=== PATIENT | female | born 1990 | race Caucasian/White ===

== ENCOUNTER 2020-07-25 18:43 | Emergency (ER) | payer OTHER, SELFPAY ==
--- NOTE | ~2020-07-25 | XR_ITS ---
EXAMINATION: XR HAND, RIGHT CLINICAL INFORMATION: Thumb injury. COMPARISON: None TECHNIQUE: PA, lateral, and oblique views of the right hand. FINDINGS: There is acute, minimally displaced fracture at the dorsal base of the distal phalanx of the first digit with extension into the interphalangeal joint space. The remainder of the joints are intact. There is mild soft tissue swelling. XR/XR hand RT min 3V IMPRESSION: Acute, minimally displaced intra-articular fracture at the dorsal base of the distal phalanx of the first digit.
[2020-07-25 19:55] VITALS: BP 128/88; PULSE 97; RESP 16; TEMP 36.8; O2SAT 96; BMI 22.4
--- NOTE | 2020-07-25 20:01 | ED.EXTPRO ---
HPI - Extremity Problem General Chief complaint: Extremity Injury, Upper Stated complaint: thumb pain Source: patient Mode of arrival: ambulatory Limitations: no limitations History of Present Illness HPI Narrative: 29-year-old female with no significant past medical history presents with right thumb pain and bruising. Patient stated that she was working out, using a punching bag, discharge her hand slipped, missed a punching bag and her thumb directly jammed in to the punching bag. She is having a difficult time bending the D IP joint on the right thumb and has bruising noted to the tip. She does not describe any other symptoms, has full range of motion to the PIP joint, no pain to any other digits or wrist. MD Complaint: extremity pain and extremity swelling Onset (ago): hour(s) (Within the hour of arrival) Pain Consistency: constant Location: right (thumb) Severity scale (1-10): 8 Quality: aching and constant Radiation: distal Relieving factors: nothing Exacerbating factors: range of motion and palpation Associated symptoms: denies other symptoms Related Data Previous Rx's Medication Instructions Recorded oxycodone 5 mg PO Q6H PRN #10 cap 07/25/20 Allergies Allergy/AdvReac Type Severity Reaction Status Date / Time No Known Allergies Allergy Verified 07/25/20 19:59 Review of Systems Review of Systems: Constitutional: No Fever, No Chills ENT/Mouth: No Ear Pain, No Hoarseness, No sore throat Eyes: No Eye Pain, No Swelling, No Redness, No Foreign Body Cardiovascular: No Chest Pain, No SOB Respiratory: No Cough, No Dyspnea Gastrointestinal: No Nausea, No Vomiting, No Diarrhea, No abdominal Pain Genitourinary: No Dysuria, No Hematuria Musculoskeletal: positive right thumb pain, No Myalgias, No Joint Swelling Skin: No Skin lacerations, No rash Neuro: No Weakness, No Numbness, No Paresthesias, No Loss of Consciousness, No Dizziness, No Headache Psych: No Anxiety/Panic, No Depression Heme/Lymph: no easy bruising, no Lymphadenopathy Endocrine: No Polyuria, No Polydipsia Yes all other systems are reviewed and are negative [facility] Past Medical History Attestation statement: The following information was validated with the patient. Source: old records reviewed Medical History No known health problems Social History Social History Advance Directives: No Physical Exam Vital Signs: Vital Signs: Last Vital Signs Temp 98.2 F 07/25/20 19:55 Pulse 97 07/25/20 19:55 Resp 16 07/25/20 19:55 BP 128/88 07/25/20 19:55 Pulse Ox 96 07/25/20 19:55 Body Mass Index 22.4 Appearance: Alert. Oriented X3. No acute distress. Eyes: Pupils equal, round and reactive to light. ENT: Pharynx normal. Neck: Normal inspection. Neck supple. CVS: Normal heart rate and rhythm. Pulses normal. Respiratory: No respiratory distress. Breath sounds normal. Abdomen: Soft and nontender. Skin: Skin warm and dry. Normal skin color. Normal skin turgor. Extremities: D IP joint of right thumb bruised, decreased range of motion to that joint, full range of motion to the PIP, no snuffbox tenderness, strength 5/5 to all digits. Brisk capillary refill. Neuro: No motor deficit. No sensory deficit. No focal neural deficits. Course Course Course Narrative: 29-year-old female presents with a thumb injury. Plan of care is for x-ray. X-ray positive for fracture will apply a splint, les-tape, and refer to Ortho as needed. Patient verbalized understanding of and agrees to plan of care discharge home. MDM - Extremity (Nontraumatic) MDM Narrative Medical decision making narrative: Fracture, sprain Medical Records Attestation: I reviewed the patient's medical records. Imaging Data Hand x-ray: Attestation: I personally reviewed and interpreted this imaging study as follows: Radiologist's impression: EXAMINATION: XR HAND, RIGHT CLINICAL INFORMATION: Thumb injury. COMPARISON: None TECHNIQUE: PA, lateral, and oblique views of the right hand. FINDINGS: There is acute, minimally displaced fracture at the dorsal base of the distal phalanx of the first digit with extension into the interphalangeal joint space. The remainder of the joints are intact. There is mild soft tissue swelling. XR/XR hand RT min 3V IMPRESSION: Acute, minimally displaced intra-articular fracture at the dorsal base of the distal phalanx of the first digit. Discharge Plan Discharge Clinical Impression: Fracture of thumb Patient Disposition: Home, Self-Care Instructions: Thumb Fracture (ED) Additional Instructions: You were evaluated for thumb injury. X-rays indicated fracture. Please follow-up with primary care physician and or orthopedics as needed. Prescribed oxycodone for pain management. This medication is a narcotic and has high risk for addiction and abuse. This medication may increase risk for falls, cause drowsiness, and constipation. Drink plenty of fluids, use MiraLax and/or Colace as needed to help soften stools. Thank you for choosing this emergency department for evaluation. Please follow-up with primary care physician as needed. Return to the emergency department for any new, concerning, or worsening symptoms. Prescriptions: New oxycodone 5 mg capsule 5 mg PO Q6H PRN (Reason: pain) Qty: 10 RF: 0 Referrals: Chelle Gonzalez MD [Physician] - 2 days (Thumb fracture) Stand Alone Forms: Work/School Release Interventions: ED Discharge Assessment Last Done: 07/25/20 21:20 Discharge Date/Time: 07/25/20 21:20
[2020-07-25] MEDS: Ibuprofen 600 MG TABLET PO (20:39)
== END 2020-07-25 21:20 | disposition home or self-care (01) ==
PROVIDERS: Emergency Provider Emergency Medicine
DX: S62.521A Displaced fracture of distal phalanx of right thumb, initial encounter for closed fracture (principal); W21.89XA Striking against or struck by other sports equipment, initial encounter; Y93.71 Activity, boxing; Y92.019 Unspecified place in single-family (private) house as the place of occurrence of the external cause; Y99.9 Unspecified external cause status
CPT/HCPCS: 29130; 73130; 99283

== ENCOUNTER → 2020-08-02 14:58 | Outpatient (BNVA) | payer OTHER, SELFPAY | PROVIDERS: Visit Provider Orthopaedic Surgery | DX: S62.521A Displaced fracture of distal phalanx of right thumb, initial encounter for closed fracture (principal) | CPT/HCPCS: 99202 ==

== ENCOUNTER 2020-08-04 10:24 | Day surgery (SDC) | payer OTHER, SELFPAY ==
[2020-08-03 09:08] VITALS: BMI 22.4
[2020-08-04] VITALS (8 sets, daily range): BP systolic 109–143; BP diastolic 76–92; PULSE 64–89; RESP 16–20; TEMP 36.6–37.1; O2SAT 99–100; BMI 22.4
--- NOTE | ~2020-08-04 | FL_ITS ---
EXAMINATION: XR FLUOROSCOPY WITH IMAGES CLINICAL INFORMATION: closed reduction vs ORIF right thumb COMPARISON: None. TECHNIQUE: Fluoroscopy performed by Dr. Gonzalez. Fluoroscopy time: 12.3 seconds DAP: 5570.1 Gycm2 Images: 2 FL/FL guidance in OR FINDINGS/IMPRESSION: A single longitudinal retrograde K wire extends through the comminuted intra-articular distal phalangeal shaft fracture into the head of the thumb proximal phalanx. Alignment is improved as compared to prior.
[2020-08-04 10:42] LABS: UPreg QC Valid YES; Urine Pregnancy NEGATIVE (NEGATIVE)
[2020-08-04] MEDS: Lactated Ringers 1,000 ML 20 ML IVCONT (10:44)
--- NOTE | 2020-08-04 12:57 | P.OP_ITS ---
Operative Note Operative Note Date of Service: 08/04/20 Narrative: Operative Note Narrative: Preop diagnosis: 1. Right thumb intra-articular comminuted distal phalanx fracture Postop diagnosis: Same Procedure: 1. Right thumb closed reduction percutaneous pinning of the distal phalanx fracture Surgeon: Chelle Gonzalez MD Anesthesia: General Findings: finger fracture Implants: 0.045 K-wires times 1 Tourniquet time: None EBL: Minimal Specimen: None Drains: None Complications: None Disposition: Brought to the recovery room in stable condition Plan: Follow-up in 10-14 days for a wound check, postop radiographs and for placement in a short-arm thumb spica cast or splint Anticipate K-wire removal in 4 weeks based on interval bony healing Educate the patient that full fracture healing anticipated in approximately 8-12 weeks. Indications: The patient is 29 years old with a right thumb intra-articular displaced distal phalanx fracture . The risks and benefits of operative treatment, including but not limited to risk of damage to blood vessels, nerves, tendons, infection, recurrence, delayed or nonunion of fracture, persistent pain or numbness, incomplete resolution of preoperative symptoms, or need for further surgery were discussed with the patient and they wished to proceed with surgery. Procedure: Once consent was obtained patient was brought back to the operating suite and placed in the operating table in a supine position. . Perioperative antibiotics and general anesthesia was administered by the anesthesia team. A tourniquet was applied to the proximal aspect of the right upper extremity and the limb was prepped and draped in a standard surgical fashion. Tourniquet was not inflated during the case. The FluoroScan was used during the case to assist with our fracture reduction and placement of all implants. A closed reduction was performed on the patient's right thumb distal phalanx fracture. I placed a single 0.045 K- wire retrograde through the tip of the distal phalanx. I then advanced this acr oss the fracture site and then across the IP joint into the proximal phalanx. Fracture alignment was assessed for both angular and rotational malalignment. Once satisfied with our fracture reduction and implant placement, the K-wires were bent and cut short and pin caps applied. Final fluoroscopic images were then obtained. The wounds were copiously irrigated with normal saline. [An ulnar nerve block was then performed by infiltrating about the ulnar nerve at the wrist with some 1% lidocaine with epinephrine for postop pain control.] A Sterile dressing and short volar splint extending to the forearm was applied. The patient appears to have tolerated the procedure well and with no complications. All digits were well vascularized at the conclusion of the case.
--- NOTE | 2020-08-04 12:57 | MHC.SHP ---
Pre-Procedural Eval Section B Chief Complaint: fx phalanx of thumb Allergies: Allergies Allergy/AdvReac Type Severity Reaction Status Date / Time No Known Allergies Allergy Verified 08/02/20 15:24 Plan I have reviewed the history and physical and performed a pertinent physical examination on my patient. No changes have occurred unless specified.
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
[2020-08-04] MEDS: Acetaminophen 325 MG TABLET 650 MG PO (13:59)
[2020-08-04] MEDS: HYDROmorphone HCl 0.5 MG/0.5 ML SYRINGE 0.25 MG IVPUSH ×2 (13:59→14:08)
[2020-08-04] MEDS: oxyCODONE HCl Immed Release 5 MG TABLET PO (13:59)
[2020-08-04] MEDS: Ketorolac Tromethamine 15 MG/ML VIAL IVPUSH (14:11)
== END 2020-08-04 15:09 | disposition home or self-care (01) ==
PROVIDERS: Visit Provider Orthopaedic Surgery
PROC: (CPT 26756; principal; 2020-08-04 12:10)
DX: S62.521A Displaced fracture of distal phalanx of right thumb, initial encounter for closed fracture (principal); W21.89XA Striking against or struck by other sports equipment, initial encounter; Y93.89 Activity, other specified; Y92.9 Unspecified place or not applicable; Y99.8 Other external cause status
CPT/HCPCS: 26756; 81025; J0690; J1100; J1170; J1885; J2250; J2405; J3010

== ENCOUNTER 2020-08-15 09:10 | Outpatient (REF) | payer OTHER, SELFPAY ==
--- NOTE | ~2020-08-15 | XR_ITS ---
EXAMINATION: XR HAND, RIGHT CLINICAL INFORMATION: Fracture base first distal phalanx. Post reduction. COMPARISON: Radiographs right hand 07/25/2020 TECHNIQUE: Right hand is imaged in 4 views. FINDINGS: The intra-articular fracture base first distal phalanx is reduced with longitudinal metallic orthopedic pin which crosses the interphalangeal joint. Alignment is improved from prior exam. There is no dislocation or destructive process. Hardware is intact. Remainder of bony structures are unremarkable. XR/XR hand RT min 3V IMPRESSION: Status post reduction intra-articular fracture base first distal phalanx.
== END 2020-08-15 09:11 | disposition home or self-care (01) ==
LOC: HO.HOSX 09:10
PROVIDERS: Visit Provider Orthopaedic Surgery
DX: S62.521D Displaced fracture of distal phalanx of right thumb, subsequent encounter for fracture with routine healing (principal)
CPT/HCPCS: 29075; 73130; 99212

== ENCOUNTER 2020-08-29 09:19 | Outpatient (REF) | payer OTHER, SELFPAY ==
--- NOTE | ~2020-08-29 | XR_ITS ---
EXAMINATION: XR HAND, RIGHT CLINICAL INFORMATION: Pain. Fracture follow up. COMPARISON: Most recent right hand radiographs dated 08/15/2020. TECHNIQUE: PA, lateral, and oblique views of the right hand. FINDINGS: Redemonstration of an orthopedic wire through a comminuted 1st distal phalangeal fracture. No significant change in anatomic alignment. No hardware fracture or perihardware lucency to suggest loosening or infection. Mild new bone/callus formation across the fracture. XR/XR hand RT min 3V IMPRESSION: Distal 1st phalangeal fracture in unchanged anatomic alignment with mild new bone/callus formation. Associated orthopedic wire without evidence of hardware complication.
== END 2020-08-29 09:20 | disposition home or self-care (01) ==
LOC: HO.HOSX 09:19
PROVIDERS: Visit Provider Orthopaedic Surgery
DX: S62.521D Displaced fracture of distal phalanx of right thumb, subsequent encounter for fracture with routine healing (principal)
CPT/HCPCS: 73130; 99212

== ENCOUNTER 2024-02-27 17:05 | Emergency (ER) | payer OTHER, SELFPAY ==
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
[2024-02-27 17:25] VITALS: BP 123/69; PULSE 89; RESP 20; TEMP 36.9; O2SAT 100; BMI 20.8
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
[2024-02-27] MEDS: HYDROcodone Bit/Acetam 5/325 TABLET 1 TAB PO (19:13)
[2024-02-27] MEDS: Ibuprofen 600 MG TABLET PO (19:14)
[2024-02-27 19:40] VITALS: BP 123/69; PULSE 89; RESP 20; TEMP 36.9; O2SAT 100
== END 2024-02-27 19:40 | disposition home or self-care (01) ==
PROVIDERS: Emergency Provider Emergency Medicine
DX: S62.304A Unspecified fracture of fourth metacarpal bone, right hand, initial encounter for closed fracture (principal); S62.306A Unspecified fracture of fifth metacarpal bone, right hand, initial encounter for closed fracture; M25.531 Pain in right wrist; X58.XXXA Exposure to other specified factors, initial encounter; Y93.89 Activity, other specified; Y92.89 Other specified places as the place of occurrence of the external cause; Y99.8 Other external cause status
CPT/HCPCS: 29125; 73110; 73130; 99283; 99284

== ENCOUNTER 2024-03-03 08:17 | Outpatient (REF) | payer OTHER, SELFPAY | END 2024-03-03 08:18 | disposition home or self-care (01) | LOC: HO.HOSX 08:17 | DX: M79.641 Pain in right hand (principal); S62.314A Displaced fracture of base of fourth metacarpal bone, right hand, initial encounter for closed fracture; S62.316A Displaced fracture of base of fifth metacarpal bone, right hand, initial encounter for closed fracture; M21.941 Unspecified acquired deformity of hand, right hand | CPT/HCPCS: 26600; 73130; 99202 ==

== ENCOUNTER 2024-03-03 08:17 | Outpatient (AMB) | payer OTHER, SELFPAY ==
--- NOTE | 2024-03-03 08:21 | A.OFFVIS_ITS ---
Vital Signs 03/03/24 08:23 Height 5 ft 5 in Weight 128 lb BMI 21.3 Handedness Left Intake Visit Reasons: ED f/u FC - rt hand Metacarpal Fx Intake Note: Dianne is a 33 year old left hand dominant female who presents today as a new patient for an emergency department follow up for her right hand metacarpal fracture, DOI: 02/27/2024. Patient reports she punched the side of a house. She reports immediately after this injury she had swelling, pain and noticed her hand was deformed immediately. She expresses burning pain depending on how much she uses her hand. She was prescribed ibuprofen and hydrocodone with acetaminophen and found mild relief. Reports the top of her right thumb has been numb since the injury. Allergies No Known Allergies Allergy (Verified 03/03/24 08:23) HPI HPI ED f/u FC - rt hand Metacarpal Fx: Details: Patient is a 33-year-old female who presents for ED follow-up of right 4th and 5th metacarpal base fractures, date of injury 02/27/2024. Patient states that on that date, she punched a wall, and immediately began to experience pain and a significant deformity in the right hand, particularly at the level of the 4th and 5th metacarpal bases. Patient was evaluated in the ED, where x-rays were taken revealing displaced and apex dorsal fractures of the 4th and 5th metacarpal bases. Of note, the patient does state that she did have to have surgery in the same area of her fractures approximately 10-12 years ago, although she is unable to recall what was broken or what was done. The patient does report that she does have some diminished sensation in the small finger of the right hand, but states that she feels this is likely due to swelling. No other acute complaints or concerns at this time. 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 Neuro: Normal sensation of the tips of all digits of the right hand at this time Vascular: Cap refill brisk Pain: Patient reports significant tenderness to palpation at the level of the 4th and 5th metacarpal bases Patient also reports pain with attempted range of motion in this area ROM: Patient is able to get close to making a closed fist, but reports significant pain in the area of the fracture when doing so Skin: No lacerations or abrasions. General: There is a significant deformity noted at the level of the 4th and 5th m etacarpal bases of the right hand at the level of the fracture No ecchymosis, erythema, or evidence of infection. Psych: Appears grossly normal Affect normal Attitude cooperative Office Procedures Casting/Splints 09981-Mnrhvzv Splint Application Procedure code (CPT) selection complete Results Reviewed Results Reviewed: X-rays obtained in the office today and independently reviewed by me, Ashish Celeste PA-C, demonstrate angulated, apex volar fractures of the 4th and 5th metacarpal bases of the right hand. Assessment & Plan Assessment & Plan (1) Displaced fracture of base of fourth metacarpal bone, right hand, initial encounter for closed fracture: Code(s): S62.314A - Displaced fracture of base of fourth metacarpal bone, right hand, initial encounter for closed fracture Category: Medical (2) Displaced fracture of base of fifth metacarpal bone, right hand, initial encounter for closed fracture: Code(s): S62.316A - Displaced fracture of base of fifth metacarpal bone, right hand, initial encounter for closed fracture Category: Medical Plan 1. Right 4th metacarpal base fracture 2. Right 5th metacarpal base fracture Date of injury 02/27/2024 I educated the patient about the condition. I discussed both operative and nonoperative treatment options. The patient would like to proceed with surgery. The risks and benefits of operative treatment were discussed with the patient and the patient wishes to proceed with surgery. These risks include, but are not limited to, risk of damage to blood vessels, nerves, tendons, infection, recurrence, incomplete relief of preoperative symptoms, persistent pain, possible need for further surgery, and the risks associated with regional blocks and/or anesthesia. Plan is to take the patient to the operating room on 03/09/24 for the following procedures: 1. Right 4th metacarpal CRPP versus ORIF 2. Right 5th metacarpal CRPP versus ORIF All of the preoperative paperwork including the consent was discussed today. All of the patient's questions were answered in the clinic today. The patient understands that they will be in contact with our lard renderer to discuss scheduling their procedure. Patient denies diabetes, blood thinners, asthma, heart issues, lung issues, kidney issues Patient does report that she uses a vape pen, and is educated on the potential effects of smoking on bony healing Patient was placed in an ulnar gutter splint in the office today is educated on proper splint care and precautions Orders: Orders XR hand RT min 3V Today M79.641 - Pain in right hand Coding Level of Care Code New Pt Level 4 (55934) Diagnoses Displaced fracture of base of fourth metacarpal bone, right hand, initial encounter for closed fracture S62.314A Displaced fracture of base of fifth metacarpal bone, right hand, initial encou nter for closed fracture S62.316A CPT Codes Splint - CPT: 31860-Isijjhv Splint Application ([id number])
[2024-03-03 08:23] VITALS: BMI 21.3
== END 2024-03-03 09:40 | disposition home or self-care (01) ==
DX: S62.314A Displaced fracture of base of fourth metacarpal bone, right hand, initial encounter for closed fracture (principal); S62.316A Displaced fracture of base of fifth metacarpal bone, right hand, initial encounter for closed fracture
CPT/HCPCS: 26600; 99204

== ENCOUNTER 2024-03-09 07:31 | Day surgery (SDC) | payer OTHER, SELFPAY ==
--- NOTE | 2024-03-05 13:45 | HO.ANESPROP2 ---
Documented by User: Genoveva Saeed NP 03/05/24 13:45 HPI - Anesthesia Eval Consult details Narrative: 33yo F for Right Fourth and Fifth Metacarpal CRPP VS ORIF [facility]LY [facility] Active Problems Active Problems: All Active Problems Displaced fracture of base of fifth metacarpal bone, right hand, initial encounter for closed fracture (Acute) Displaced fracture of base of fourth metacarpal bone, right hand, initial encounter for closed fracture (Acute) Fracture of distal phalanx of right thumb (Acute) Past Medical History Medical History No known health problems Surgical History Surgical History H/O tubal ligation Hx of thumb surgery Hx of hand surgery Social History Social History Alcohol intake: current Alcohol intake frequency: does not drink Patient Tobacco Use Status: Never used Tobacco Tobacco use type: Smokeless Tobacco e-Cigarette/Vaping Use: Currently Using Substance Use Type: Marijuana Have you been hit, kicked, punched, or otherwise hurt by someone within the past year? 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 Allergies Allergy/AdvReac Type Severity Reaction Status Date / Time No Known Allergies Allergy Verified 03/03/24 08:23 Home Medications ?Medication ?Instructions ?Recorded ?Confirmed ?Last Taken ?Type No Known Home Meds 03/09/24 03/09/24 Unknown History Assessment and Plan Assessment Anesthesia Assessment: Chart Reviewed Documented by User: Georgia Jose MD 03/09/24 09:06 [facility] Past Medical History Medical History No known health problems Family History Family history of problems with anesthesia: No Surgical History Surgical History H/O tubal ligation Hx of thumb surgery Hx of hand surgery History of Problems with Anesthesia: No Social History Social History Alcohol intake: current Alcohol intake frequency: does not drink Patient Tobacco Use Status: Never used Tobacco Tobacco use type: Smokeless Tobacco e-Cigarette/Vaping Use: Currently Using Substance Use Type: Marijuana Have you been hit, kicked, punched, or otherwise hurt by someone within the past year? 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 Allergies Allergy/AdvReac Type Severity Reaction Status Date / Time No Known Allergies Allergy Verified 03/03/24 08:23 Home Medications ?Medication ?Instructions ?Recorded ?Confirmed ?Last Taken ?Type No Known Home Meds 03/09/24 03/09/24 Unknown History Exam Airway Mallampati Class: II TM Dist: >3cm Neck ROM: Full Heart: rrr Lungs: cta Assessment and Plan Assessment Anesthesia Assessment: Anesthesia Plan Discussed Final Anesthetic Review Family History of Problems with Anesthesia: No History of Problems with Anesthesia: No NPO: Yes ASA Class: II (marihuana and smokeless tobacco user) Final Preanesthetic Review: No Changes in Pt Med Stat, Meds/Allgs Chart Reviewed, Consent Obtained/Reviewed and Anes Risks/Benef Reviewed Patient Risk: Low Procedure Risk: Low Anesthetic Plan Anesthetic Plan: GA Disposition: Standard PACU
[2024-03-09] VITALS (8 sets, daily range): BP systolic 101–118; BP diastolic 55–76; PULSE 55–86; RESP 16–19; TEMP 36.4–36.9; O2SAT 96–98; BMI 21.3; BMI 21.0
[2024-03-09 07:48] LABS: UPreg QC Valid YES; Urine Pregnancy NEGATIVE (NEGATIVE)
[2024-03-09] MEDS: Lactated Ringers 1,000 ML 100 ML IVCONT (08:06)
--- NOTE | 2024-03-09 09:17 | P.OP_ITS ---
Operative Note Operative Note Date of Service: 03/09/24 Narrative: Operative Note Narrative: Preop diagnosis: 1. Right 5th Metacarpal base fracture 2. Right 4th metacarpal base fracture Postop diagnosis: Same Procedure: 1. Right 5th Metacarpal fracture closed reduction percutaneous pinning 2. Right 4th metacarpal fracture closed reduction percutaneous pinning 3. Ulnar nerve block Surgeon: Chelle Gonzalez MD E Learning Specialist: None Anesthesia: General Anesthesia Findings: 4th and 5th Metacarpal base fractures Implants: 0.054 K-wires times 1, and 0.045 K-wire x1 Tourniquet time: None EBL: Minimal Specimen: None Drains: None Complications: None Disposition: Brought to the recovery room in stable condition Plan: Follow-up in 10-14 days for a wound check, postop radiographs and for placement in a short-arm cast Anticipate K-wire removal in 4 weeks based on interval bony healing Educate the patient that full fracture healing anticipated in approximately 8-12 weeks. Indications: The patient is 33 years old with right 4th and 5th proximal metacarpal shaft/base fractures . The risks and benefits of operative treatment, including but not limited to risk of damage to blood vessels, nerves, tendons, infection, recurrence, delayed or nonunion of fracture, persistent pain or numbness, incomplete resolution of preoperative symptoms, or need for further surgery were discussed with the patient and they wished to proceed with surgery. Procedure: Once consent was obtained patient was brought back to the operating suite and placed in the operating table in a supine position. . Perioperative antibiotics and general anesthesia was administered by the anesthesia team. A tourniquet was applied to the proximal aspect of the right upper extremity and the limb was prepped and draped in a standard surgical fashion. Tourniquet was not inflated during the case. The FluoroScan was used during the case to assist with our fracture reduction and placement of all implants. A closed reduction was performed on the patient's 4th and 5th metacarpal base fractures. I placed a single 0.045 K- wire obliquely and retrograde from the ulnar side of the 5th metacarpal shaft across the 5th metacarpal fracture crossing the 5th CMC joint and entering the body of the hamate. I was satisfied with our reduction and and placement of this implant. I then placed a 0.045 K-wire transversely from the ulnar aspect of the 5th metacarpal shaft, holding the 4th metacarpal in a reduced position and passing through the 4th metacarpal and into the base of the 3rd metacarpal. Fracture alignment was assessed for both angular and rotational malalignment. Once satisfied with our fracture reduction and implant placement, the K-wires were bent and cut short and pin caps applied. Final fluoroscopic images were then obtained. The wounds were copiously irrigated with normal saline. An ulnar nerve block was then performed by infiltrating about the ulnar nerve at the wrist with some 1% lidocaine with epinephrine for postop pain control. A Sterile dressing and short volar splint was applied. The patient appears to have tolerated the procedure well and with no complications. All digits were well vascularized at the conclusion of the case.
--- NOTE | 2024-03-09 09:17 | MHC.SHP ---
Pre-Procedural Eval Section A - 24 Hr Update-Section A only Date of Service: 03/09/24 The patient is an INPATIENT: No Changes since office visit: No Cold of Flu in the past 2 weeks, No New Medical Problems, No Changes in Medication and No Patient answered all questions The patient has been examined within 24 hours of the surgical procedure. The History & Physical has been completed within 30 days and I have reviewed it.: Yes Section B - Complete if H&P > 30 days Chief Complaint: Unspecified fracture of fourth and 5th metacarpal Allergies: Allergies Allergy/AdvReac Type Severity Reaction Status Date / Time No Known Allergies Allergy Verified 03/03/24 08:23 Plan I have reviewed the history and physical and performed a pertinent physical examination on my patient. No changes have occurred unless specified. Time Spent With Patient Time: Total time managing care of this patient today ____ minutes.
[2024-03-09] MEDS: fentaNYL citrate/PF 100 MCG/2 ML VIAL 25 MCG IVPUSH ×2 (10:45→10:50)
== END 2024-03-09 11:33 | disposition home or self-care (01) ==
PROVIDERS: Nurse Practitioner; Visit Provider Orthopaedic Surgery
PROC: (CPT 26615; principal; 2024-03-09 09:00)
DX: S62.314A Displaced fracture of base of fourth metacarpal bone, right hand, initial encounter for closed fracture (principal); S62.316A Displaced fracture of base of fifth metacarpal bone, right hand, initial encounter for closed fracture; R20.2 Paresthesia of skin; W22.09XA Striking against other stationary object, initial encounter; Y93.9 Activity, unspecified; Y92.9 Unspecified place or not applicable; Y99.8 Other external cause status; Z98.890 Other specified postprocedural states; F17.290 Nicotine dependence, other tobacco product, uncomplicated
CPT/HCPCS: 26608 ×2; 81025; J0131; J0690; J1100; J2003; J2004; J2250; J2405; J2704; J3010

== ENCOUNTER → 2024-03-09 07:31 | Outpatient (BNV) | payer OTHER, SELFPAY | PROVIDERS: Visit Provider Orthopaedic Surgery | DX: S62.314A Displaced fracture of base of fourth metacarpal bone, right hand, initial encounter for closed fracture (principal); S62.316A Displaced fracture of base of fifth metacarpal bone, right hand, initial encounter for closed fracture | CPT/HCPCS: 26608 ==

== ENCOUNTER 2024-03-24 08:03 | Outpatient (REF) | payer OTHER, SELFPAY ==
--- NOTE | ~2024-03-24 | XR_ITS ---
EXAMINATION: XR HAND RIGHT CLINICAL INFORMATION: Pain in right hand M79.641. Out of splint pins in hand. COMPARISON: XR Right hand 03/03/2024 TECHNIQUE: PA, lateral, and oblique views of the right hand. FINDINGS: Postsurgical changes, with a K wire projected over the proximal fifth metacarpal and the hamate. Additional horizontally oriented K wire projected over the bases of the third, fourth, fifth metacarpals. The known proximal fourth and fifth metacarpal fractures are not well visualized. Intact hardware. Limited evaluation of the carpometacarpal joints due to overlapping densities. The proximal carpal arc alignment is maintained. Bony alignment of the distal hamate is maintained. No new acute fracture seen. XR/XR hand RT min 3V IMPRESSION: Status post surgical fixation with hardware transfixing the proximal fourth and fifth metacarpal fractures as detailed above. Intact hardware. Study is assigned/presented to me for interpretation on Apr 30, 2024 Electronically signed by: Michael Escalante MD 04/30/2024 01:08 PM [facility]
== END 2024-03-24 08:04 | disposition home or self-care (01) ==
LOC: HO.HOSX 08:03
DX: M79.641 Pain in right hand (principal); S62.316D Displaced fracture of base of fifth metacarpal bone, right hand, subsequent encounter for fracture with routine healing; S62.314D Displaced fracture of base of fourth metacarpal bone, right hand, subsequent encounter for fracture with routine healing; Z98.890 Other specified postprocedural states
CPT/HCPCS: 29075; 73130; 99212

== ENCOUNTER 2024-03-24 11:13 | Outpatient (AMB) | payer OTHER, SELFPAY ==
--- NOTE | 2024-03-24 11:16 | A.OFFVIS_ITS ---
Intake Visit Reasons: PO: RT 4TH & 5TH MC FX CRPP 03/09/24 w/ AR Intake Note: Dianne is a 33 year old left hand dominant female who presents today for a post operative visit s/p right 5th metacarpal fracture CRPP and right 4th metacarpal fracture CRPP DOS: 03/09/2024 w/ Dr Gonzalez. Pt states she is overal doing well and denies any pain,numbness,tingling or locking of her fingers. Allergies No Known Allergies Allergy (Verified 03/24/24 11:16) HPI HPI PO: RT 4TH & 5TH MC FX CRPP 03/09/24 w/ AR: Details: Patient is a 33-year-old female who presents for follow-up evaluation of right 4th and 5th metacarpal fracture status post CRPP, DOS 03/09/2024. Today, the patient reports that she is feeling very well, she experiences no pain at baseline. The patient states that she does feel that she has some limited range of motion of her wrist, but she is still able to make a closed fist and extend all digits of the right hand fully. Patient denies any numbness or tingling in the right hand. No other acute complaints or concerns at this time. 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 Neuro: Normal sensation of the tips of all digits of the right hand at this time Vascular: Cap refill brisk Pain: Patient reports no tenderness to palpation at the level of the 4th and 5th metacarpal bases ROM: Patient is able to make a closed fist and extend all digits of the right hand fully Skin: No lacerations or abrasions. General: Pin sites clean, dry, intact, no evidence of infection No ecchymosis, erythema, or evidence of infection. Psych: Appears grossly normal Affect normal Attitude cooperative Office Procedures Casting/Splints [id number]-[id number] Cast Application Procedure code (CPT) selection complete Results Reviewed Results Reviewed: X-rays obtained in the office today and independently reviewed by me, Ashish Celeste PA-C, demonstrate surgically induced fractures of the 4th and 5th metacarpal bases with orthopedic hardware in place and in satisfactory clinical alignment. Assessment & Plan Assessment & Plan (1) Displaced fracture of base of fifth metacarpal bone, right hand, initial encounter for closed fracture: Code(s): S62.316A - Displaced fracture of base of fifth metacarpal bone, right hand, initial encounter for closed fracture Category: Medical (2) Displaced fracture of base of fourth metacarpal bone, right hand, initial encounter for closed fracture: Code(s): S62.314A - Displaced fracture of base of fourth metacarpal bone, right hand, initial encounter for closed fracture Category: Medical Plan 1. Right 4th and 5th metacarpal base fracture status post CRPP DOS 03/09/2024 Patient appears to be recovering well postoperatively Patient is educated about the typical recovery course At this time, patient was placed into a short-arm cast Patient was advised that she should continue working on range of motion of the digits of her right hand to prevent stiffness Patient was amenable to this plan Patient is educated on proper cast care and precautions Patient will follow-up in 2 weeks with repeat x-rays, sooner with any acute concerns Orders: Orders XR hand RT min 3V Today M79.641 - Pain in right hand Coding Level of Care Code Global (32750) Diagnoses Displaced fracture of base of fifth metacarpal bone, right hand, initial encounter for closed fracture S62.316A Displaced fracture of base of fourth metacarpal bone, right hand, initial encounter for closed fracture S62.314A CPT Codes Casting - CPT: 65696-Xbslyoh Cast Application ([id number])
== END 2024-03-24 12:00 | disposition home or self-care (01) ==
DX: S62.316A Displaced fracture of base of fifth metacarpal bone, right hand, initial encounter for closed fracture (principal); S62.314A Displaced fracture of base of fourth metacarpal bone, right hand, initial encounter for closed fracture
CPT/HCPCS: 29075; 99024

== ENCOUNTER 2024-04-07 09:07 | Outpatient (REF) | payer OTHER, SELFPAY | END 2024-04-07 09:08 | disposition home or self-care (01) | LOC: HO.HOSX 09:07 | DX: S62.314A Displaced fracture of base of fourth metacarpal bone, right hand, initial encounter for closed fracture (principal) | CPT/HCPCS: 73130; 99212 ==

== ENCOUNTER 2024-04-07 10:54 | Outpatient (AMB) | payer OTHER, SELFPAY ==
--- NOTE | 2024-04-07 11:00 | A.OFFVIS_ITS ---
Vital Signs 04/07/24 11:04 Height 5 ft 5 in Weight 130 lb BMI 21.6 Handedness Left Intake Visit Reasons: PO: right 4th & 5th MC CRPP DOS 03/09/24 Intake Note: Dianne is a 33 year old left hand dominant female who presents today for a post operative visit s/p right 5th metacarpal fracture CRPP and right 4th metacarpal fracture CRPP DOS: 03/09/2024 w/ Dr Gonzalez. At her last visit she was placed in a short arm cast. Cast has been removed for updated xrays today in office. Patient denies any pain, numbness and tingling. States she does not have any stiffness in the fingers of her right hand. She expresses she is having stiffness in the wrist after cast removal. Allergies No Known Allergies Allergy (Verified 04/07/24 11:03) HPI HPI PO: right 4th & 5th MC CRPP DOS 03/09/24: Details: Patient is a 33-year-old female who presents for postoperative evaluation status post right 4th 5th metacarpal CRPP, DOS 03/09/2024. Today, the patient reports that she is feeling very well, and that she experiences no pain at the level of the fracture. Patient inquires whether or not the pins will be pulled today. Denies numbness or tingling in the right upper extremity. No other acute complaints or concerns at this time. 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 Neuro: Normal sensation of the tips of all digits of the right hand at this time Vascular: Cap refill brisk Pain: Patient reports no tenderness to palpation at the level of the 4th and 5th metacarpal bases ROM: Patient is able to make a closed fist and extend all digits of the right hand fully General: Pin sites clean, dry, intact, no evidence of infection No ecchymosis, erythema, or evidence of infection. Psych: Appears grossly normal Affect normal Attitude cooperative Results Reviewed Results Reviewed: X-rays obtained in the office today and independently reviewed by me, Ashish Celeste PA-C, demonstrate fractures of the 4th and 5th metacarpal bases with pins in place, in satisfactory clinical alignment, and with evidence of interval bony healing Assessment & Plan Assessment & Plan (1) Displaced fracture of base of fourth metacarpal bone, right hand, initial encounter for closed fracture: Code(s): S62.314A - Displaced fracture of base of fourth metacarpal bone, right hand, initial encounter for closed fracture Category: Medical (2) Displaced fracture of base of fifth metacarpal bone, right hand, initial encounter for closed fracture: Code(s): S62.316A - Displaced fracture of base of fifth metacarpal bone, right hand, initial encounter for closed fracture Category: Medical Plan 1. Displaced fracture of 4th metacarpal base of right hand 2. Displaced fracture of 5th metacarpal base of right hand Status post CRPP DOS 03/09/2024 Patient appears to be recovering well postoperatively Patient is educated about the typical recovery course Pins pulled in the office today Patient was advised on pin site care and precautions At this time, patient was informed that she will no longer require any strict immobilization, and will need to les tape her fingers together as well as wearing a Velcro wrist splint with daytime activities Patient was amenable to this plan Patient will follow-up in 4 weeks with repeat x-rays for reassessment, sooner with any acute concerns Orders: Orders XR hand RT min 3V 04/07/24 M79.641 - Pain in right hand Coding Level of Care Code Global (64257) Diagnoses Displaced fracture of base of fourth metacarpal bone, right hand, initial encounter for closed fracture S62.314A Displaced fracture of base of fifth metacarpal bone, right hand, initial encounter for closed fracture S62.316A
[2024-04-07 11:04] VITALS: BMI 21.6
== END 2024-04-07 12:14 | disposition home or self-care (01) ==
DX: S62.314A Displaced fracture of base of fourth metacarpal bone, right hand, initial encounter for closed fracture (principal); S62.316A Displaced fracture of base of fifth metacarpal bone, right hand, initial encounter for closed fracture
CPT/HCPCS: 99024

== ENCOUNTER → 2024-04-07 10:58 | Outpatient (BNV) | payer OTHER, SELFPAY | PROVIDERS: Visit Provider Radiology Diagnostic Radiology | DX: M79.641 Pain in right hand (principal) | CPT/HCPCS: 73130 ==

== ENCOUNTER 2024-05-05 15:39 | Outpatient (AMB) | payer OTHER, SELFPAY ==
--- NOTE | 2024-05-05 15:48 | A.OFFVIS_ITS ---
Vital Signs 05/05/24 15:57 Height 5 ft Weight 130 lb BMI 25.4 Intake Visit Reasons: PO: right 4th & 5th MC CRPP DOS 03/09/24 Intake Note: Dianne is a 33 year old female who presents today for a post operative right 4th & 5th MC CRPP, DOS 03/09/24. Patient reports she is dong well, states some discomfort however this is expected. Allergies No Known Allergies Allergy (Verified 04/07/24 11:03) HPI HPI PO: right 4th & 5th MC CRPP DOS 03/09/24: Details: Dianne is a 33 year old female who presents today for a post operative right 4th & 5th MC CRPP, DOS 03/09/24. Patient reports she is dong well, states some discomfort with the extremes of ROM however this is expected. Denies numbness or tingling. No other acute complaints or concerns. 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 Neuro: Normal sensation of the tips of all digits of the right hand at this time Vascular: Cap refill brisk Pain: Patient reports no tenderness to palpation at the level of the 4th and 5th metacarpal bases ROM: Patient is able to make a closed fist and extend all digits of the right hand fully General: Pin sites clean, dry, intact, no evidence of infection No ecchymosis, erythema, or evidence of infection. Psych: Appears grossly normal Affect normal Attitude cooperative Results Reviewed Results Reviewed: X-rays obtained in the office today and independently reviewed by me, Ashish Celeste PA-C, demonstrate fractures of the 4th and 5th metacarpal bases in satisfactory clinical alignment, and with evidence of interval bony healing Assessment & Plan Assessment & Plan (1) Displaced fracture of base of fourth metacarpal bone, right hand, initial encounter for closed fracture: Code(s): S62.314A - Displaced fracture of base of fourth metacarpal bone, right hand, initial encounter for closed fracture Category: Medical (2) Displaced fracture of base of fifth metacarpal bone, right hand, initial encounter for closed fracture: Code(s): S62.316A - Displaced fracture of base of fifth metacarpal bone, right hand, initial encounter for closed fracture Category: Medical Plan 1. Displaced fracture of 4th metacarpal base of right hand 2. Displaced fracture of 5th metacarpal base of right hand Status post CRPP DOS 03/09/2024 Patient appears to be recovering well postoperatively Patient is educated about the typical recovery course Patient is advised that she is recovering very well, and will require no acute follow up with us, as she is back to nearly full ROM and strength Patient was amenable to this plan Patient will follow-up as needed with any acute concerns Coding Level of Care Code Global (92807) Diagnoses Displaced fracture of base of fourth metacarpal bone, right hand, initial encounter for closed fracture S62.314A Displaced fracture of base of fifth metacarpal bone, right hand, initial encounter for closed fracture S62.316A
[2024-05-05 15:57] VITALS: BMI 25.4
== END 2024-05-05 15:59 | disposition home or self-care (01) ==
DX: S62.314A Displaced fracture of base of fourth metacarpal bone, right hand, initial encounter for closed fracture (principal); S62.316A Displaced fracture of base of fifth metacarpal bone, right hand, initial encounter for closed fracture
CPT/HCPCS: 99024

== ENCOUNTER → 2024-05-05 15:39 | Outpatient (BNVA) | payer OTHER, SELFPAY | DX: S62.314D Displaced fracture of base of fourth metacarpal bone, right hand, subsequent encounter for fracture with routine healing (principal); S62.316D Displaced fracture of base of fifth metacarpal bone, right hand, subsequent encounter for fracture with routine healing; X58.XXXD Exposure to other specified factors, subsequent encounter; Z98.890 Other specified postprocedural states | CPT/HCPCS: 99212 ==

== ENCOUNTER 2025-03-26 14:56 | Outpatient (AMB) | payer OTHER, SELFPAY ==
--- NOTE | 2025-03-26 15:13 | A.OFFPC_ITS ---
Vital Signs 03/26/25 15:14 Height 5 ft Weight 131 lb BMI 25.6 Blood Pressure Location Lt brachial Position Sitting Respiration 18 Pulse 85 Pulse Source Pulse Oximeter Temp Source Temporal Artery Scan Pulse Oximetry (%) 100 Oxygen Delivery Method Room Air Intake Visit Reasons: Herpes [employer] Required: No Accompanied by: Self / Same As Patient Allergies No Known Allergies Allergy (Verified 03/26/25 15:14) Medication List - Last Reconciled 03/26/25 by Shara Evans MD valacyclovir 500 mg PO BID PRN zolmitriptan take 1 tab at onset of headache; if no relief may repeat 1 tab after at least 2 hrs; max = 4 tabs/24 hr PO Tobacco use date assessed: 03/26/25 Dental Screening Dental Screen Date: 03/26/25 Did you have a dental visit in the last 12 months?: No Did you have a dental problem in the last 6 months where you did not have access to dental care?: No Was dental information given to patient?: No HPI HPI Comments History of Present Illness Details Patient is a 34-year-old female presenting to [facility] and for evaluation of a genital sore. Has not seen a doctor since her last . The patient reports a history of genital herpes, diagnosed during her approximately 3-4 years ago, which was characterized by extremely painful sores and dysuria. She was told it was a repeat outbreak, which she found confusing as she had no prior awareness of having the virus. She denies any recurrent flares since that initial episode. Currently, for the past two days, she has noticed a single, itchy lesion in the genital area. The patient's family history is positive for cervical cancer in her mother and diabetes. There is no family history of heart attacks or stroke. Regarding social history, she quit using a vape over a month ago and quit smoking cigarettes approximately 3-4 years ago upon learning of her , after smoking for two years. She endorses regular daily use of marijuana at [facility] and drinks alcohol very seldom. 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 1. Little interest or pleasure in doing things: not at all 2. Feeling down, depressed, or hopeless: several days 3. Trouble falling or staying asleep, or sleeping too much: several days 4. Feeling tired or having little energy: several days 5. Poor appetite or overeating: not at all 6. Feeling bad about yourself - or that you are a failure or have let yourself or your family down: not at all 7. Trouble concentrating on things, such as reading the newspaper or watching television: not at all 8. Moving or speaking so slowly that other people could have noticed. Or the opposite - being so fidgety or restless that you have been moving around a lot more than usual: not at all 9. Thoughts that you would be better off or of hurting yourself in some way: not at all Total score: 3 Source: Developed by Drs. Edward Bernstein, Kavya Cole, Conner Gamboa and colleagues, with an educational sharla from [employer] Thrive Questionnaire Date Thrive assessed: 03/26/25 I am a: Patient What is your living situation today?: I have a steady place to live Within the past 12 months, did the food you bought not last and you didn't have the money to get more?: Never true Within the past 12 months, did you worry whether your food would run out before you got money to buy more?: Never true Do you have trouble paying for medicines?: No Do you have trouble getting transportation to medical appointments?: No Do you have trouble paying your heating and electricity bill?: No Do you have trouble taking care of your child, family member or friend?: No Do you have trouble with day-to-day activities such as bathing, preparing meals, shopping, managing finances, etc.?: No Are you currently unemployed and looking for a job?: No Are you interested in more education?: No Please select the resources that you would like help with: None Currently or been in a relationship where the following occur: No concerns reported THRIVE Score: 0 AUDIT C Alcohol Use Questionnaire (AUDIT-C) 2. How many drinks containing alcohol do you have on a typical day when you are drinking?: 1 or 2 3. How often do you have six or more drinks on one occasion?: Never Total Score: 0 MIQUEL-7 AMB Questionnaire MIQUEL-7 Date MIQUEL - 7 assessed: 03/26/25 Feeling nervous, anxious, or on edge: 1 = Several days Not being able to stop or control worryin = Not at all Worrying too much about different things: 0 = Not at all Trouble relaxin = Not at all Being so restless that it is hard to sit still: 0 = Not at all Becoming easily annoyed or irritable: 1 = Several days Feeling afraid as if something awful might happen: 0 = Not at all Total MIQUEL-7 score (0-4 normal; 5-9 mild; 10-14 moderate; 15-21 severe): 2 Source: Developed by Drs. Edward Bernstein, Kavya Cole, Conner Gamboa and colleagues, with an educational sharla from [employer] Physical exam (Primary Care) Vital Signs: Last Vital Signs Pulse 85 03/26/25 15:14 Resp 18 03/26/25 15:14 Pulse Ox 100 03/26/25 15:14 Oxygen Delivery Method Room Air 03/26/25 15:14 General: Well-appearing, alert, oriented ?3, in no acute distress. Cardiovascular: RRR, S1-S2 appreciated, no murmurs, rubs or gallops. Respiratory: Lungs clear to auscultation bilaterally, no wheezes, rales or rhonchi. Abdomen: Soft, nontender, nondistended. Normoactive bowel sounds. Vaginal exam: External genitalia normal, no erythema, edema or lesions except for a single small papule noted on the left upper labia minora. No vesicles, ulceration or discharge associated with the papule. Vaginal mucosa pink, moist that lesions or abnormal discharge. Cervix is visualized and appears normal wi thout friability. BMI result Body Mass Index 25.6 Tobacco/Smoking Status: Tobacco use Status Tobacco use date assessed 03/26/25 03/26/25 15:18 Patient Tobacco Use Status Never used Tobacco 03/26/25 15:18 Tobacco use type Smokeless Tobacco 03/26/25 15:18 e-Cigarette/Vaping Use Currently Using 03/26/25 15:18 PHQ-9: PHQ-9 Score PHQ-9: Total score 3 03/26/25 15:56 Thrive Assessment: Date of Thrive Assessment Date Thrive assessed 03/26/25 03/26/25 15:18 Currently or been in a relationship where the following occur: No concerns reported Coding Level of Care Code New Pt Level 4 (40832) Diagnoses Establishing care with new doctor, encounter for Z76.89 Pap smear for cervical cancer screening Z12.4 Herpes simplex vulvovaginitis A60.04 Herpes simplex infection site: vulvovaginitis Assessment & Plan Assessment & Plan (1) Establishing care with new doctor, encounter for: Code(s): Z76.89 - Persons encountering health services in other specified circumstances Plan: Patient presenting to establish care. Obtain blood work. (2) Pap smear for cervical cancer screening: Code(s): Z12.4 - Encounter for screening for malignant neoplasm of cervix Plan: Patient reports her last Pap smear was 3 years ago during her . Pap smear performed today for cervical cancer screening. (3) Herpes genitalis: Code(s): A60.00 - Herpesviral infection of urogenital system, unspecified Category: Medical Qualifiers: Herpes simplex infection site: vulvovaginitis Qualified Code(s): A60.04 - Herpesviral vulvovaginitis Plan: Patient reports history of herpes genitalis during her last , for which she is on valacyclovir. She reports a new itchy lump noticed 2 days ago. Physical exam remarkable for a single small papule noted on the left upper labia minora, without vesicles, ulceration or discharge associated with the papule. She would like to get tested for HSV. will test for HSV antibodies. Given patient's history, and possible early stage lesion was symptoms of itchiness, start valacyclovir 1 tablet twice a day for 3 days. A prescription provided for as needed use for flares, with instruction to initiate treatment within 1 day of symptom onset like pain, vesicles, pruritus, burning or tingling. Plan Patient was informed and verbally consented to the use of an ambient scribe for clinic note documentation during this visit. Orders: Orders Complete Blood Count Auto Diff Today Z00.00 - Encounter for general adult medical examination without abnormal findings Comprehensive Met. Panel Today Z00.00 - Encounter for general adult medical examination without abnormal findings Vitamin D 25-OH (D2 and D3) Today Z13.21 - Encounter for screening for nutritional disorder Lipid Panel with Reflex Today Z13.220 - Encounter for screening for lipoid disorders Hemoglobin A1c Today Z13.1 - Encounter for screening for diabetes mellitus Herpes Simplex Virus Ab IgG Today Z86.19 - Personal history of other infectious and parasitic diseases HPV High risk Today Z12.4 - Encounter for screening for malignant neoplasm of cervix Pap Smear Today Z12.4 - Encounter for screening for malignant neoplasm of cervix Medications: New valacyclovir 500 mg PO BID 20 tabs 0RF herpes lesions
[2025-03-26 15:14] VITALS: PULSE 85; RESP 18; O2SAT 100; BMI 25.6
--- OUTSIDE RECORDS SUMMARY | 2025-03-26 20:00 | XMS_ITS ---
Author Name [facility] ([place], [place]) Organization Unknown Care Team Organization Name Specialty Phone Email Start Date End Da te [facility] Shelia Ponce Primary Care 02/20/2022 4
--- OUTSIDE RECORDS SUMMARY | 2025-03-26 20:00 | XMS_ITS | Clinical Summary ---
Author Organization [facility] Address [address] [place] [address] Care Team Providers Care Chucker Name Role Phone Shelia Ponce MD Primary Care Provider [phone] Allergies No known active allergies Medications acetaminophen (TYLENOL EXTRA STRENGTH ORAL) Take by mouth. Active aspirin (ASPIR-81 ORAL) Take by mouth. Active [id number] -epa-fish oil ( Gummy) 400 mcg-35 mg -25 mg-5 mg tablet,chewable Chew 1 tablet 1 (one) time each day. Active Active Problems Problem Noted Date Diagnosed Date Gestational hypertension 01/08/2022 Overview (04/02/2024): 11/2021 Genital herpes simplex virus (HSV) infection in mother affecting 08/02/2021 Overview (04/02/2024): HSV cultures done. States no previous history of herpes Serum HSV IGG- positive /IGM Negative Started on Valtrex. Referal placed to [facility] Needs Valtrex 500 mg QD starting 36 weeks gestation. if active lesion at time of delivery, Last Assessment & Plan: Rx for Valtrex ordered today. To start at 35-36 weeks gestation. History of marijuana use 05/17/2021 Overview (04/02/2024): Was a daily smoker, stopped with . Negative at IP labs Last Assessment & Plan: UDS negative last visit. Dyspareunia in female 03/29/2021 Overview (04/02/2024): Last Assessment & Plan: Counseled that likely not to have anything concerning going on, but could be sensitive uterus with intercourse due to early . Given resolved rapidly after intercourse and not reproducible on exam today, not concerning for pelvic pathology. She will continue to monitor. Immunizations Immunization Administration Dates Next Due HPV, Quadrivalent 01/22/2007,09/18/2006,07/19/19 07 Tdap Tetanus diptheria acell ular pertussis (Boostrix; Adacel) 7yo and older 09/18/2021,06/06/2015 Surgical History Surgery Date Site/Laterality Comments HAND SURGERY 2014 PROCEDURE: HISTORICAL HAND SURGERY; COMMENT: right hand after punching wall HAND SURGERY 2020 Right PROCEDURE: [place] UNLISTED PROCEDURE HANDS/FINGERS; COMMENT: thumb surgery Medical History Medical History Date Comments Patient denies medical problems DX:Patient denies medical problems Family history of ovarian cancer 06/17/2017 DX:Family history of ovarian cancer Family History Medical History Relation Name Comments Alcohol/Drug Brother Depression Father COPD Maternal Grandmother Diabetes Maternal Grandmother cervica l cancer Other: lupus Mother cervical, endom etrial cancer, ovarian Ovarian cancer Mother Heart failure Paternal Grandfather Stroke Paternal Grandfather Breast cancer Neg Hx Relation Name Status Comments Brother Alive Father Alive Maternal Grandfather Alive Maternal Grandmother Alive Mother Alive Paternal Grandfather Paternal Grandmother Alive Social History Tobacco Use Types Packs/Day Years Used Date Smoking Tobacco: Former Cigarettes 0 Q uit: 03/25/2021 Smokeless Tobacco: Never Alcohol Use Standard Drinks/Week Comments Not Currently 0 (1 standard drink = 0.6 oz pur e alcohol) Comments Unknown Sex and Gender Information Value Date Recorded Sex Assigned at Not on file Legal Sex Female 3:17 PM EST Gender Identity Not on file Sexual Orientation Not on file Last Filed Vital Signs Vital Sign Reading Time Taken Comments Blood Pressure 122/80 01/08/2022 8:52 AM EDT Pulse 90 01/08/2022 8:52 AM EDT Temperature - - Respiratory Rate - - Oxygen Saturation - - Inhaled Oxygen Concentration - - Weight 76.2 kg (168 lb) 01/08/2022 8:52 AM EDT Height - - Body Mass Index - - Plan of Treatment Health Maintenance Due Date Last Done Comments Hepatitis B Vaccines (1 of 3 - 19+ 3-dose series) 2009 Social Influencers of Health Screening 03/14/2022 Hypertension/CHF/CAD Annual BMP Blood Test 03/25/2022 10/12/2020 Cholesterol Screening (Lipid Panel) 05/02/2022 05/02/2017 Depression Screening 04/15/2024 COVID-19 Vaccine (4 - 2024-2 6 season) 2024 06/02/2021, 07/27/2020, 07/06/2020 Influenza Vaccine (#1) 2024 Cervical Cancer Screening: HPV 10/21/2025 10/21/2020 DTaP,Tdap,and Td Vaccines (3 - Td or Tdap) 09/19/2031 09/18/2021, 06/06/2015 RSV Immunization Adult Patients (1 - 1-dose 75+ series) 2065 HPV Vaccines Completed 01/22/2007, 09/18/2006, 07/18/2006 HIV Screening Completed 05/18/2021 Hepatitis C Screening Completed 05/18/2021 HIB Vaccines Aged Out No longer eligi ble based on patient's age to complete this topic Hepatitis A Vaccines Aged Out No long er eligible based on patient's age to complete this topic IPV Vaccines Aged Out No longer eligi ble based on patient's age to complete this topic MMR Vaccines Aged Out No longer eligi ble based on patient's age to complete this topic Meningococcal ACWY Vaccine Aged Out N o longer eligible based on patient's age to complete this topic Meningococcal B Vaccine Aged Out No l onger eligible based on patient's age to complete this topic Pneumococcal Vaccine: Pediatrics (0 to 5 Years) and At-Risk Patients (6 to 49 Years) Aged Out No longer eligible b ased on patient's age to complete this topic RSV Immunization Patients Under 20 months Aged Out No longer eligible b ased on patient's age to complete this topic Varicella Vaccines Aged Out No longer eligible based on patient's age to complete this topic Procedures Procedure Name Priority Date/Time Associated Diagnosis Comments HEPATITIS C SCREENING Routine 05/18/2021 HIV SCREENING Routine 05/18/2021 HPV Routine 10/21/2020 ANNUAL BMP BLOOD TEST Routine 10/12/2020 LIPID PANEL Routine 05/02/2017 from Last 3 Months or Most Recently Relevant to Health Maintenance Results * HIV Screening (05/18/2021) [facility] HIV Screening abstracted [facility] Provider HEALTH MAINTENANCE Final Result * Hepatitis C Screening (05/18/2021) [facility] Hepatitis C Screening abstracted [facility] Provider HEALTH MAINTENANCE Final Result * Cervical Cancer Screening: HPV (10/21/2020) [facility] Cervical Cancer Screening: HPV negative, abstracted Result [facility] Provider HEALTH MAINTENANCE Final Result * Annual BMP Blood Test (10/12/2020) [facility] Annual BMP Blood Test abstracted Result [facility] Provider HEALTH MAINTENANCE Final Result * Lipid panel (05/02/2017) [facility] LDL/HDL Ratio 3 0 - 4 Triglycerides 61 0 - 150 mg/dL Cholesterol 163 0 - 200 mg/dL HDL 64 >=40 mg/dL LDL Cholesterol 87 0 - 100 mg/dL Blood Venous blood specimen / Unknown Result [facility] Provider LAB BLOOD ORDERABLES Gabriela l Result from Last 3 Months or Most Recently Relevant to Health Maintenance Care Teams Chucker Relationship Specialty Start Date End Date Shelia Ponce MD [address] [place] [address] PCP - General Internal Medicine 03/28/21
== END 2025-03-26 16:06 | disposition home or self-care (01) ==
LOC: HO.HMCH 14:57
PROVIDERS: PCP Student in an Organized Health Care Education/Training Program; Visit Provider Student in an Organized Health Care Education/Training Program
DX: Z76.89 Persons encountering health services in other specified circumstances (principal); Z12.4 Encounter for screening for malignant neoplasm of cervix; A60.04 Herpesviral vulvovaginitis

== ENCOUNTER 2025-03-26 14:56 | Outpatient (REF) | payer OTHER, SELFPAY | END 2025-03-26 14:57 | disposition home or self-care (01) | LOC: HO.LAB 14:56 | PROVIDERS: Visit Provider Student in an Organized Health Care Education/Training Program | DX: Z12.4 Encounter for screening for malignant neoplasm of cervix (principal); A60.04 Herpesviral vulvovaginitis; Z76.89 Persons encountering health services in other specified circumstances; Z86.19 Personal history of other infectious and parasitic diseases | CPT/HCPCS: 88175 ==